=== PATIENT | female | born 1970 | race Caucasian/White ===

== ENCOUNTER 2022-06-27 11:30 | Emergency (ER) | payer BC, SELFPAY ==
--- NOTE | 2022-06-27 12:10 | HMH.EDUTC ---
[facility] [place] Disposition Clinical Impression: UTI (urinary tract infection) Qualifiers: Urinary tract infection type: site unspecified Hematuria presence: with hematuria Qualified Code(s): N39.0 - Urinary tract infection, site not specified Disposition: Home, Self-Care Condition on Discharge: Good Instructions: Urinary Tract Infection, Urine Culture, DI for Urinary Tract Infection (UTI), Phenazopyridine Additional Instructions: Drink plenty of fluids. Take tylenol or ibuprofen for pain or fever. Take the medications as directed. Follow up with your regular doctor. GO TO THE ER FOR ANY WORSENING SYMPTOMS The pyridium will make your urine turn orange, this is an expected side effect. It will stain your clothes if it comes into contact with them. We will culture the urine. That will tell what bacteria is causing your infection and which antibiotics will treat it best. Sometimes the first antibiotic we prescribe turns out to not work against different bacteria. So, make sure you follow up within 3 days if you are not getting better. Prescriptions: Ondansetron [Zofran 4mg ODT] 4 mg PO Q8HP PRN #12 tab PRN Reason: Nausea Transmission Status: Received by [id number] Ciprofloxacin HCl [Cipro 500mg Tab] 500 mg PO BID 7 Days #14 tab Transmission Status: Received by [id number] Phenazopyridine HCl [Pyridium 200mg Tablet] 200 pow PO TID #6 tab Transmission Status: Received by [id number] Referrals: Lupe Contreras [Primary Care Provider] - Time of Disposition: 13:01 Medical Decision Making - Medical Records Medical records reviewed: No: I reviewed the patient's medical records. - Derrick Inquiry Pt receiving controlled substance: No Vital Signs: 06/27/22 12:15 06/27/22 13:06 Temperature 97.8 F 97.8 F Temperature Source Oral Pulse Rate 85 Pulse Rate [Left] 85 Respiratory Rate 17 17 Blood Pressure 156/82 H Blood Pressure [Right Arm] 156/82 H Blood Pressure Mean [Right Arm] 106 02 Sat by Pulse Oximetry 96 - Lab Data Lab results reviewed: Yes: I reviewed the patient's lab results. Lab Results 06/27/22 12:16: Urine Color Yellow, Urine Appearance Clear, Urine pH 6.0, Ur Specific [place] 1.010, Urine Protein 2+, Urine Glucose (UA) Negative, Urine Ketones Trace, Urine Blood 3+, Urine Nitrate Negative, Urine Bilirubin Negative, Urine Urobilinogen 0.2, Ur Leukocyte Esterase 1+ A [facility] [place] HPI - General Stated complaint: Possible UTI Time Seen by Provider: 06/27/22 12:10 - History of Present Illness Provider Complaint: She states that for the past 2 days she has urinary frequency, urgency and dysuria. She occasionally gets UTI's and that is what she feels like is happening now. - Related Data Previous Rx's Medication Instructions Recorded levothyroxine 100 mcg tablet 100 mcg PO DAILY 90 Days #90 tab 01/20/21 Ciprofloxacin HCl [Cipro 500mg 500 mg PO BID 7 Days #14 tab 06/27/22 Tab] Ondansetron [Zofran 4mg ODT] 4 mg PO Q8HP PRN #12 tab 06/27/22 Phenazopyridine HCl [Pyridium 200 pow PO TID #6 tab 06/27/22 200mg Tablet] Allergies Allergy/AdvReac Type Severity Reaction Status Date / Time FISH OIL Allergy Unknown SWELLING Uncoded 01/20/21 15:19 NUTS Allergy Unknown ITCHING Uncoded 01/20/21 15:19 [facility] History - Hepatitis A Screen Attestation statement:: This patient has been screened for Hepatitis A risk factors. I have reviewed the patient's past medical history: Yes Other Medical History: Reports: Hypothyroidism Other Surgeries: Yes: Thyroidectomy, Other Comment: ovarian cyst removed - Social History Smoking Status: Never smoker Alcohol Intake: never Occupational Status: employed Family Hx:: Hyperlipidemia, Hypertension ROS Obtained: Yes All systems reviewed & no additional complaints - Constitutional Constitutional: Reports as per HPI - Eyes Eyes: Denies eye discharge - Genitourinary Female Genitourin
[2022-06-27 12:15] VITALS: BP 156/82; PULSE 85; RESP 17; TEMP 36.6; O2SAT 96; BMI 34.0
[2022-06-27 12:18] LABS: Apearance,Urine Clear (Clear); Color,Urine Yellow (Yellow)
[2022-06-27 12:21] LABS: Glucose,Urine (UA) Negative (Negative); Ketones,Urine TRACE (Negative); Protein,Urine 2+ (Negative)
[2022-06-27 12:22] LABS: Bilirubin,Urine Negative (Negative); Blood, Urine 3+ (Negative); UTC Leukocyte Esterase,Urine 1+ (Negative); UTC Nitrate,Urine Negative (Negative); Urobilinogen,Urine 0.2 EU/dl (0.2)
[2022-06-27 13:06] VITALS: BP 156/82; PULSE 85; RESP 17; TEMP 36.6
== END 2022-06-27 13:08 | disposition home or self-care (01) ==
PROVIDERS: Emergency Provider Nurse Practitioner Family; PCP Family Medicine
DX: N39.0 Urinary tract infection, site not specified (principal); R31.9 Hematuria, unspecified
CPT/HCPCS: 81003; 87086; 87088; 87186; 99212; G0463

== ENCOUNTER 2023-09-14 07:46 | Emergency (ER) | payer BC, SELFPAY ==
[2023-09-14 07:46] VITALS: BP 181/90; PULSE 112; RESP 25; TEMP 36.6; O2SAT 98; BMI 34.0
--- NOTE | 2023-09-14 07:59 | CT_ITS ---
FINAL REPORT TECHNIQUE: Axial images through the abdomen and pelvis were performed without contrast. This study was performed with techniques to keep radiation doses as low as reasonably achievable, (ALARA). Individualized dose reduction techniques using automated exposure control or adjustment of mA and/or kV according to the patient's size were employed. CLINICAL HISTORY: severe R flank pain FINDINGS: ABDOMEN: There is mild scarring in the lung bases. The heart size is normal. Limited images of the liver are unremarkable. There has been cholecystectomy. The spleen is normal. No adrenal mass is identified. The aorta is normal in caliber. There is no significant free fluid or adenopathy. There is a 14 mm stone at the right UPJ. There is moderate right hydronephrosis. PELVIS: The appendix is not identified. The urinary bladder is unremarkable. There is no significant free fluid or adenopathy. There is an infraumbilical hernia containing fat only. IMPRESSION: 14 mm right UPJ stone with moderate right hydronephrosis. Reviewed, Interpreted and Dictated by Kris Morales III, MD Transcribed by Jh Garcia Authenticated and [facility]
--- NOTE | 2023-09-14 08:00 | HMH.EDGENADL ---
Discharge Plan Disposition Patient Disposition: Home, Self-Care Condition: Good Prescriptions Prescriptions: New tamsulosin [Flomax] 0.4 mg capsule 0.4 mg PO HS Qty: 14 0RF ondansetron 4 mg tablet,disintegrating 4 mg PO Q8H PRN (Reason: nausea and vomiting) Qty: 12 0RF ketorolac 10 mg tablet 10 mg PO Q8H PRN (Reason: pain) Qty: 20 0RF oxycodone 5 mg tablet 5 mg PO Q8H PRN (Reason: pain) Qty: 12 0RF acetaminophen 650 mg tablet extended release 650 mg PO Q8H PRN (Reason: fever or pain) Qty: 20 0RF No Action levothyroxine [Synthroid] 100 mcg tablet 100 mcg PO DAILY 90 Days Qty: 90 4RF phenazopyridine 200 MG tablet 200 pow PO TID Qty: 6 0RF ciprofloxacin HCl 500 MG tablet 500 mg PO BID 7 Days Qty: 14 0RF ondansetron 4 MG tablet,disintegrating 4 mg PO Q8HP PRN (Reason: Nausea) Qty: 12 0RF Referrals Follow up/Referrals: Lupe Contreras [Primary Care Provider] - See instructions Activity Restrictions/Add. Instructions Additional Instructions/Restrictions: You were evaluated in the emergency department today and diagnosed with a kidney stone on the right. 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 Follow-up outpatient with Dr. Navarro with [facility].? is the phone number. They should contact you with information regarding follow up for procedure. If you have not heard from them by this afternoon, please call their office. Seek evaluation in the emergency department right away should you develop any fevers, intractable nausea and vomiting, or other concerns. Clinical Impressions Clinical Impression: Calculus of proximal right ureter, Hydronephrosis Stand Alone Forms Stand Alone Forms: Work/School Release Instructions Patient Instructions: DI for Kidney Stones, DI for Acute Pain -- Adult Discharge ED Provider: Love Calixto General Adult HPI General Chief complaint: PAIN Stated complaint: back pain, no accident Time Seen by Provider: 09/14/23 07:57 History of Present Illness HPI narrative: This patient is a 33-year-old female with a history of goiter status post thyroidectomy presenting to the emergency department for evaluation with concern for severe right flank pain. She reports that the pain woke her up around 1:30 AM. It radiates all down her right side. She denies any history of any traumatic injury or any history of back pain like this in the past. She notes that she has had associated nausea and vomiting. Nothing seems to make the pain better or worse. She denies any fevers, chills, chest pain, shortness of breath, changes in bowel movements, dysuria, hematuria, rashes, or swelling. She is ambulatory without issue and denies any saddle anesthesia, incontinence, or other concerns. Related Data Previous Rx's Medication Instructions Recorded levothyroxine 100 mcg tablet 100 mcg PO DAILY 90 days #90 tabs 01/20/21 (Synthroid) ciprofloxacin HCl 500 mg tablet 500 mg PO BID 7 days #14 tabs 06/27/22 ondansetron 4 mg disintegrating 4 mg PO Q8HP PRN Nausea #12 tabs 06/27/22 tablet phenazopyridine 200 mg tablet 200 pow PO TID #6 tabs 06/27/22 acetaminophen 650 mg 650 mg PO Q8H PRN fever or pain 09/14/23 tablet,extended release #20 tabs ketorolac 10 mg tablet 10 mg PO Q8H PRN pain #20 tabs 09/14/23 ondansetron 4 mg disintegrating 4 mg PO Q8H PRN nausea and 09/14/23 tablet vomiting #12 tabs oxycodone 5 mg tablet 5 mg PO Q8H PRN pain #12 tabs 09/14/23 tamsulosin 0.4 mg capsule (Flomax) 0.4 mg PO HS #14 caps 09/14/23 Allergies Allergy/AdvReac Type Severity Reaction Status Date / Time FISH OIL Allergy Unknown SWELLING Uncoded 01/20/21 15:19 NUTS Allergy Unknown ITCHING Uncoded 01/20/21 15:19 PFSH PFSH Disclaimer: The information contained in this section may have been updated after the patient was seen, as this information can be updated by other users. Social History (Reviewed 09/14/23 @ 08:0
[2023-09-14 08:04] LABS: Microscopic, Urine URINE MICROSCOPIC (MICROSCOPIC)
--- NOTE | 2023-09-14 08:05 | PC.NURSE ---
Dr. Calixto at bedside
[2023-09-14 08:08] LABS: Bilirubin,Urine Negative (Negative); Blood, Urine 3+ (Negative); Color,Urine YELLOW (Yellow); Glucose,Urine (UA) Negative (Negative); Ketones,Urine Negative (Negative); Leukocyte Esterase,Urine Negative (Negative); Nitrate,Urine Negative (Negative); Protein,Urine 2+ (Negative); Specific Gravity, Urine >= 1.030 (1.005-1.030); Urobilinogen,Urine 0.2 EU/dl (0.2)
[2023-09-14 08:13] LABS: Basophils # 0.1 K/mm3 (0-0.2); Basophils % 0.7 % (0.1-2.0); Eosinophils # 0.3 K/mm3 (0.0-0.4); Eosinophils % 2.6 % (0.1-12.0); Hematocrit 47.3 % (37.0-47.0); Hemoglobin 15.8 g/dL (12.2-16.2); Lymphocytes # 3.6 K/mm3 (0.7-4.5); Lymphocytes % 31.8 % (10-50); Mean Corpuscular HGB Conc 33.3 g/dL (31.8-35.4); Mean Corpuscular Hemoglobin 30.8 pg (27.0-31.2); Mean Corpuscular Volume 92.3 fl (81-99); Mean Platelet Volume 10.3 fl (7.4-10.4); Monocytes # 0.5 K/mm3 (0.1-1.0); Monocytes % 4.1 % (1.7-9.3); Neutrophils # 6.9 K/mm3 (1.8-7.8); Neutrophils % 60.7 % (37.0-80.0); Platelet Count 97 K/mm3 (142-424); Red Blood Count 5.12 M/mm3 (4.20-5.40); Red Cell Distribution Width 14.7 % (11.5-17.5); White Blood Count 11.4 K/mm3 (4.8-10.8)
[2023-09-14 08:13] LABS: Appearance,Urine Slightly Cloudy (Clear)
[2023-09-14 08:19] LABS: Chloride 104 mmol/L (98-107); Potassium 4.1 mmoL/L (3.5-5.1); Sodium 139 mmol/L (136-145)
[2023-09-14 08:22] LABS: Alanine Aminotransferase 36 U/L (12-78); Albumin Level 4.8 g/dl (3.5-5.0); Albumin/Globulin Ratio 1.9 (1.1-1.8); Alkaline Phosphatase 84 U/L (38-126); Anion Gap 13.1 mEq/L (5-15); Aspartate Amino Transferase 38 U/L (14-36); Bilirubin,Total 0.4 mg/dl (0.2-1.3); Blood Urea Nitrogen 16 mg/dl (7-17); Carbon Dioxide 26 mmol/L (22.0-30.0); Creatinine Clearance Estimated 141 mL/min (50-200); Estimated Glomerular Filt Rate 105 ml/min (>60); GFR (African American) 127 ML/MIN (>60); Globulin 2.5 g/dL (1.3-3.2); Total Protein,Serum 7.3 g/dl (6.3-8.2)
[2023-09-14 08:23] LABS: Calcium 8.9 mg/dl (8.4-10.2); Glucose 156 mg/dl (74-100)
[2023-09-14 08:27] LABS: Calcium Oxalate Crystals,Urine Trace /lpf
--- NOTE | 2023-09-14 09:10 | PC.NURSE ---
called fay to chris to [facility] and a disc, spoke with frantz Mendoza
--- NOTE | 2023-09-14 09:25 | PC.NURSE ---
placed call to [facility] for urology transfer, awaiting return call
[2023-09-14 09:30] VITALS: BP 141/83; PULSE 95; RESP 18; O2SAT 99
--- NOTE | 2023-09-14 09:43 | PC.NURSE ---
pt up to the bathroom, by her side.
--- NOTE | 2023-09-14 09:45 | PC.NURSE ---
pt hooked back up to vitals monitoring and given a pillow for comfort. Updated on POC and awaiting call back from [facility] regarding possible transfer.
--- NOTE | 2023-09-14 10:05 | PC.NURSE ---
Dr. Calixto s/w Dr. Devries, Urologist with [facility].
[2023-09-14 10:17] VITALS: BP 145/88; PULSE 88; RESP 17; TEMP 36.8; O2SAT 97
--- NOTE | 2023-09-14 10:24 | PC.NURSE ---
Dr. Calixto at bedside
--- NOTE | 2023-09-14 14:59 | PC.NURSE ---
faxed referral to [facility]- Dr. Serjio Navarro, .
== END 2023-09-14 10:43 | disposition home or self-care (01) ==
PROVIDERS: Emergency Provider Emergency Medicine; PCP Family Medicine
DX: R10.31 Right lower quadrant pain (principal); N13.0 Hydronephrosis with ureteropelvic junction obstruction; R11.2 Nausea with vomiting, unspecified; E03.9 Hypothyroidism, unspecified
CPT/HCPCS: 74176; 80053; 81001; 85025; 96361; 96374; 96375; 99285; J0131; J2405

== ENCOUNTER 2023-10-16 09:17 | Emergency (ER) | payer BC, SELFPAY ==
[2023-10-16 09:17] VITALS: BP 150/82; PULSE 85; RESP 18; TEMP 36.7; O2SAT 96; BMI 34.0
[2023-10-16 10:24] LABS: UTC Strep Screen (Rapid) Negative (Negative)
--- NOTE | 2023-10-16 10:56 | EXP.UTC ---
Discharge Plan Disposition Patient Disposition: Home, Self-Care Condition: Good Prescriptions Prescriptions: New azithromycin [azithromycin] 250 mg tablet 250 mg PO DIRECTED Qty: 6 0RF Rx Instructions: Take two (2) tablets on day #1, then one (1) tablet day #2 thru #5 No Action levothyroxine [Synthroid] 100 mcg tablet 100 mcg PO DAILY 90 Days Qty: 90 4RF tamsulosin [Flomax] 0.4 mg capsule 0.4 mg PO HS Qty: 14 0RF ketorolac 10 mg tablet 10 mg PO Q8H PRN (Reason: pain) Qty: 20 0RF oxycodone 5 mg tablet 5 mg PO Q8H PRN (Reason: pain) Qty: 12 0RF Referrals Follow up/Referrals: Lupe Contreras [Primary Care Provider] - See instructions Activity Restrictions/Add. Instructions Additional Instructions/Restrictions: Start antibiotics today be sure to take it as ordered with the full length of time although you should start feeling better in 24-48 hours. Change toothbrush and toothpaste 24-48 hours after starting antibiotics Tylenol or Motrin as needed for fever or pain Encourage fluids, water, Gatorade, Powerade, try cold fluids, popsicles, ice cream will make it feel better You are contagious for 24 hours. Avoid kissing anyone, no eating or drinking after anyone. You are contagious. Follow-up the ER for new or worsening symptoms or no noticeable improvement over the next 24-48 hours. Follow-up with PCP this week. Clinical Impressions Clinical Impression: Strep sore throat Instructions Patient Instructions: DI for Strep Throat Discharge ED Provider: Madison ([facility])Candice [facility] [place] HPI General Stated complaint: sore throat,hurts when swallow Mode of Arrival: Ambulatory Source of Information: Patient Limitations: No Limitations Time Seen by Provider: 10/16/23 10:56 Description of Symptoms (Recalled from Triage Doc. by RN): sore throat HEENT Symptoms (Recalled from RN notes): Yes Resp Symptoms (Recalled from RN notes): No Skin Symptoms (Recalled from RN notes): No MS Symptoms (Recalled from RN notes): No Functional Status (Recalled from RN notes): n/a History of Present Illness Provider Complaint: 53 yr old female presents for sore throat Related Data Previous Rx's Medication Instructions Recorded levothyroxine 100 mcg tablet 100 mcg PO DAILY 90 days #90 tabs 01/20/21 (Synthroid) ketorolac 10 mg tablet 10 mg PO Q8H PRN pain #20 tabs 09/14/23 oxycodone 5 mg tablet 5 mg PO Q8H PRN pain #12 tabs 09/14/23 tamsulosin 0.4 mg capsule (Flomax) 0.4 mg PO HS #14 caps 09/14/23 azithromycin 250 mg tablet 250 mg PO DIRECTED #6 tabs 10/16/23 Allergies Allergy/AdvReac Type Severity Reaction Status Date / Time FISH OIL Allergy Unknown SWELLING Uncoded 10/16/23 10:32 NUTS Allergy Unknown ITCHING Uncoded 01/20/21 15:19 Worker's Comp Is this a Worker's Comp case?: No [facility] Disclaimer: The information contained in this section may have been updated after the patient was seen, as this information can be updated by other users. 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 alcohol intake: never current occupational status: employed Travel in the last 8 weeks: Inside the [place] ROS Obtained: Yes All systems reviewed & no additional complaints except as documented Constitutional Constitutional: Reports system reviewed and no additional complaints, except as documented Eyes Eyes: Reports system reviewed and no additional complaints, except as documented ENT Ears, Nose, Mouth, and Throat: Reports system reviewed and no additional complaints, except as documented, Reports as per HPI and Reports sore throat Cardiovascular Cardiovascular: Reports system reviewed and no additional complaints, except as documented Respiratory Respiratory: Reports system reviewed and no additional complaints, except as documented Integumentary/Breasts Skin/Breast: Reports system reviewed and no additional complaints, except as doc
[2023-10-16 11:07] VITALS: BP 150/82; PULSE 85; RESP 18; TEMP 36.7; O2SAT 96
== END 2023-10-16 11:07 | disposition home or self-care (01) ==
PROVIDERS: Emergency Provider Nurse Practitioner Family; PCP Family Medicine
DX: J02.0 Streptococcal pharyngitis (principal); R07.0 Pain in throat
CPT/HCPCS: 87880; 99212; 99214; G0463

== ENCOUNTER 2024-07-23 08:17 | Emergency (ER) | payer BC, SELFPAY ==
[2024-07-23 08:34] VITALS: BP 146/80; PULSE 78; RESP 16; TEMP 37; O2SAT 97; BMI 32.6
[2024-07-23 08:39] LABS: UTC Strep Screen (Rapid) Negative (Negative)
--- NOTE | 2024-07-23 09:00 | ED_ITS ---
Discharge Plan Disposition Patient Disposition: Home, Self-Care Condition: Good Prescriptions Prescriptions: New amoxicillin 875 mg tablet 875 mg PO Q12H Qty: 20 0RF methylprednisolone 4 mg Tablets,Dose Pack 4 mg PO DIRECTED 6 Days Qty: 21 0RF Rx Instructions: Take 1 pack as directed for 6 days [id number] [Bromfed DM] 2-30-10 mg/5 mL Syrup 5 ml PO Q6H PRN (Reason: Cough) Qty: 240 0RF No Action levothyroxine [Synthroid] 100 mcg tablet 100 mcg PO DAILY 90 Days Qty: 90 4RF azithromycin [azithromycin] 250 mg tablet 250 mg PO DIRECTED Qty: 6 0RF Rx Instructions: Take two (2) tablets on day #1, then one (1) tablet day #2 thru #5 tamsulosin [Flomax] 0.4 mg capsule 0.4 mg PO HS Qty: 14 0RF ketorolac 10 mg tablet 10 mg PO Q8H PRN (Reason: pain) Qty: 20 0RF oxycodone 5 mg tablet 5 mg PO Q8H PRN (Reason: pain) Qty: 12 0RF Referrals Follow up/Referrals: Lupe Contreras [Primary Care Provider] - See instructions Activity Restrictions/Add. Instructions Additional Instructions/Restrictions: Drink plenty of fluids. Take tylenol or ibuprofen for pain or fever. Take the medications as directed. Follow up with your regular doctor. GO TO THE ER FOR ANY WORSENING SYMPTOMS Clinical Impressions Clinical Impression: Pharyngitis, Acute viral syndrome Print Language Print Language: Danish Discharge ED Provider: Serafin Curran [facility] General Stated complaint: sore throat headache Mode of Arrival: Ambulatory Source of Information: Patient Limitations: No Limitations Time Seen by Provider: 07/23/24 09:00 Description of Symptoms (Recalled from Triage Doc. by RN): Reports possible strep throat. Complaint of sore throat, drainage and loss of voice. HEENT Symptoms (Recalled from RN notes): Yes Resp Symptoms (Recalled from RN notes): No Skin Symptoms (Recalled from RN notes): No MS Symptoms (Recalled from RN notes): No Functional Status (Recalled from RN notes): wnl History of Present Illness Provider Complaint: She states that for the past 2 days she has had worsening sore throat, chills, headache, and malaise. Related Data Previous Rx's ?Medication ?Instructions ?Recorded levothyroxine 100 mcg tablet 100 mcg PO DAILY 90 days #90 tabs 01/20/21 (Synthroid) ketorolac 10 mg tablet 10 mg PO Q8H PRN pain #20 tabs 09/14/23 oxycodone 5 mg tablet 5 mg PO Q8H PRN pain #12 tabs 09/14/23 tamsulosin 0.4 mg capsule (Flomax) 0.4 mg PO HS #14 caps 09/14/23 azithromycin 250 mg tablet 250 mg PO DIRECTED #6 tabs 10/16/23 amoxicillin 875 mg tablet 875 mg PO Q12H #20 tabs 07/23/24 nmcuynjazrzdszu-dsboppyvwccghyv-CA 5 ml PO Q6H PRN Cough #240 mL 07/23/24 2 mg-30 mg-10 mg/5 mL oral syrup (Bromfed DM) methylprednisolone 4 mg tablets in 4 mg PO DIRECTED 6 days #21 tabs 07/23/24 a dose pack Allergies Allergy/AdvReac Type Severity Reaction Status Date / Time fish oil Allergy Unknown Verified 12/02/23 14:30 allergy reaction nut - unspecified Allergy Unknown Verified 12/02/23 14:30 allergy reaction Worker's Comp Is this a Worker's Comp case?: No [facility] Disclaimer: The information contained in this section may have been updated after the patient was seen, as this information can be updated by other users. 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 alcohol intake: never current occupational status: employed Travel in the last 8 weeks: Inside the [place] ROS Obtained: Yes All systems reviewed & no additional complaints except as documented Constitutional Constitutional: Reports chills and Reports fever(s) Eyes Eyes: Denies eye discharge ENT Ears, Nose, Mouth, and Throat: Reports as per HPI Cardiovascular Cardiovascular: Denies chest pain Respiratory Respiratory: Denies chest congestion and Reports cough Gastrointestinal Gastrointestingal: Reports nausea; Denies abdominal pain, constipation, cramping, diarrhea or vomiting Musculoskeletal Musculoskeletal: Denies arthralgias Integumentary/Breasts Skin/Breast: Denies rash Neurologic Neurologic: Denies paresthesias Physical Exam General General appearance: alert and in no apparent distress Head Head exam: atraumatic, normocephalic and normal inspection Eye Eye exam: Present normal appearance, PERRL and EOMI ENT ENT exam: Present mucous membranes moist and normal external ear exam Expanded ENT Exam TM/Canal exam: Bilateral TM: erythema and bulging Nose exam: Absent sinus tenderness Mouth exam: Present normal external inspection; Absent drooling Teeth exam: Present normal inspection Throat exam: Present tonsillar erythema, tonsillomegaly and tonsillar exudate Neck Neck exam: Present normal inspection, full ROM and trachea midline; Absent tenderness, meningismus or lymphadenopathy Chest Chest inspection: Present normal inspection and symmetric chest wall rise; Absent tenderness Respiratory Respiratory exam: Present normal lung sounds bilaterally; Absent respiratory distress, wheezes, stridor or accessory muscle use Cardiovascular Cardiovascular exam: Present regular rate and normal rhythm; Absent systolic murmur or diastolic murmur Abdominal Exam Abdominal exam: Present soft and normal bowel sounds; Absent distention, tenderness, guarding, rebound or rigidity Extremities Exam Extremities exam: Present normal inspection and normal capillary refill; Absent calf tenderness Back Exam Back exam: Present normal inspection and full ROM; Absent tenderness, CVA tenderness (R) or CVA tenderness (L) Neurological Exam Neurological exam: Present alert, oriented X3 and CN II-XII intact Psychiatric Psychiatric exam: Present normal affect and normal mood Skin Skin exam: Present warm, dry, intact and normal color Medical Decision Making Medical Records Medical records reviewed: No I reviewed the patient's medical records. Derrick Inquiry Pt receiving controlled substance: No Vital Signs: 07/23/24 08:34 Temperature 98.6 F Temperature Source Oral Pulse Rate [Radial] 78 Respiratory Rate 16 Blood Pressure [Right Arm] 146/80 H Blood Pressure Mean [Right Arm] 102 Blood Pressure Source [Right Arm] Automatic Cuff Blood Pressure Position [Right Arm] Sitting 02 Sat by Pulse Oximetry 97 Oxygen Delivery Method Room Air Lab Data Lab results reviewed: Yes I reviewed the patient's lab results. Lab Results 07/23/24 08:33: Strep Scn Rapid Clinic Negative Orders (Tests/Meds): ORDERS Category Date Time Status Strep Screen Confirmation Stat Micro 07/23/24 08:33 Received
[2024-07-23 09:45] VITALS: BP 146/80; PULSE 78; RESP 18; TEMP 37; O2SAT 97
== END 2024-07-23 09:46 | disposition home or self-care (01) ==
PROVIDERS: Emergency Provider Nurse Practitioner Family; PCP Family Medicine
DX: J02.9 Acute pharyngitis, unspecified (principal); R51.9 Headache, unspecified; B34.9 Viral infection, unspecified
CPT/HCPCS: 87635; 87880; 99212; 99214; G0463